=== PATIENT | male | born 1975 | race Caucasian/White ===

== ENCOUNTER 2017-01-18 12:42 | Emergency (ER) | payer MEDICAID ==
[~2017-01-18] VITALS: Ht 147.3 cm; Wt 96.0 kg
[~2017-01-18 12:42] MED LIST: LISI20TA11 PO
[2017-01-18 12:54] VITALS: Ht 147.3 cm; Wt 96.0 kg
[2017-01-18 19:58] LABS: BASOPHIL # 0.1 10^3/ul (0.0-0.1); BASOPHILS % 1.3 % (0.0-2.0); EOSINOPHILS # 0.8 10^3/ul (0.0-0.5); EOSINOPHILS % 9.6 % (0.0-7.0); HEMATOCRIT 45.2 % (42.0-52.0); HEMOGLOBIN 14.8 g/dl (14.0-18.0); LYMPHOCYTES # 3.4 10^3/ul (0.8-2.9); LYMPHOCYTES % 41.3 % (15.0-51.0); MEAN CORPUSCULAR HEMOGLOBIN 28.5 pg (29.0-33.0); MEAN CORPUSCULAR HGB CONC 32.7 g/dl (32.0-37.0); MEAN CORPUSCULAR VOLUME 87.1 fl (82.0-101.0); MEAN PLATELET VOLUME 11.2 fl (7.4-10.4); MONOCYTE # 0.6 10^3/ul (0.3-0.9); MONOCYTES % 6.8 % (0.0-11.0); NEUTROPHILS % 40.8 % (39.0-77.0); PLATELET COUNT 235 10^3/UL (140-415); RED BLOOD COUNT 5.19 10^6/ul (4.70-6.10); RED CELL DISTRIBUTION WIDTH 12.9 % (11.5-14.5); WHITE BLOOD COUNT 8.2 10^3/ul (4.8-10.8)
--- NOTE | 2017-01-18 20:05 | RADRPT ---
PROCEDURE: XR Chest AP portable CLINICAL INDICATION: Chest pain TECHNIQUE: An AP portable radiograph of the chest was submitted. COMPARISON: 01/11/2014 FINDINGS: Support Hardware: None Cardiovascular: The cardiovascular silhouette appears unremarkable. Lung Lee: The lung lee appear clear with no nodule, alveolar infiltrate, or interstitial promi nence evident. Pleural Spaces: No pneumothorax or pleural effusion is identified. Osseous Structures: The osseous structures appear intact. Soft Tissues: The soft tissues appear generous. IMPRESSION: Stable and unremarkable portable chest. Physician Carolyn Date Time Electronically viewed and signed by Génesis Goldman Physician on 01/18/2017 20:05 RH/
[2017-01-18 20:15] LABS: ANION GAP 16 (8-16); BLOOD UREA NITROGEN 13 mg/dl (7-20); CALCIUM 9.7 mg/dl (8.4-10.2); CARBON DIOXIDE 27 mmol/L (21-31); CHLORIDE 104 mmol/L (97-110); CREATININE 0.85 mg/dl (0.61-1.24); GLUCOSE 95 mg/dl (70-220); POTASSIUM 3.7 mmol/L (3.5-5.1); SODIUM 143 mmol/L (135-144)
[2017-01-18 20:37] LABS: TROPONIN-I < 0.012 ng/ml (0.00-0.12)
--- NOTE | 2017-01-18 22:35 | ERD ---
ER Documentation Chief Complaint Date/Time DATE: 01/18/17 TIME: 22:33 Chief Complaint SIDE AFFECTS OF NEW MEDICATION (LOSARTAN), DIZZINESS/LETHARGY/MID-EPG PAIN HPI This 41-year-old male presents emergency room for lightheadedness as well as mild chest pain after he started taking losartan. He last took it this morning and started feeling strange. He has not had any reactions to his other medications before. He denies shortness of breath, nausea vomiting. ROS All systems reviewed and are negative except as per history of present illness. Medications Home Meds Discontinued Reported Medications Lisinopril* (Lisinopril*) 20 Mg Tablet, 20 MG PO DAILY, TAB 01/11/14 Allergies Allergies: Coded Allergies: atenolol (Unverified Adverse Reaction, Unknown, 01/18/17) hydrochlorothiazide (Unverified Adverse Reaction, Unknown, 01/18/17) lisinopril (Unverified Adverse Reaction, Unknown, 01/18/17) losartan (Unverified Adverse Reaction, Unknown, 01/18/17) PMhx/Soc History of Surgery: Yes (L knee Sx) Anesthesia Reaction: No Hx Neurological Disorder: No Hx Respiratory Disorders: No Hx Cardiac Disorders: Yes (HTN) Hx Psychiatric Problems: No Hx Miscellaneous Medical Probl: No (HTN) Hx Alcohol Use: Yes (current ETOH use ) Hx Substance Use: No Hx Tobacco Use: No Smoking Status: Never smoker Physical Exam Vitals Vital Signs Date Time Temp Pulse Resp B/P Pulse Ox O2 Delivery O2 Flow Rate FiO2 01/18/17 18:45 97.7 59 19 142/97 97 Room Air 01/18/17 12:54 98.4 72 20 158/84 98 Physical Exam Const: [] No distress Head: Atraumatic Eyes: Normal Conjunctiva ENT: Normal External Ears, Nose and Mouth. Neck: Full range of motion..~ No meningismus. Resp: Clear to auscultation bilaterally Cardio: Mild sinus bradycardia, no murmurs Abd: Soft, non tender, non distended. Normal bowel sounds Skin: No petechiae or rashes Ext: No cyanosis, or edema Neur: Awake and alert Psych: Normal Mood and Affect Result Diagram: 01/18/17194401/18/171944 Results 24 hrs Laboratory Tests Test 9/8/17 19:45 White Blood Count 8.210^3/ul Red Blood Count 5.1910^6/ul Hemoglobin 14.8g/dl Hematocrit 45.2% Mean Corpuscular Volume 87.1fl Mean Corpuscular Hemoglobin 28.5pg Mean Corpuscular Hemoglobin Concent 32.7g/dl Red Cell Distribution Width 12.9% Platelet Count 00707^3/UL Mean Platelet Volume 11.2fl Neutrophils % 40.8% Lymphocytes % 41.3% Monocytes % 6.8% Eosinophils % 9.6% Basophils % 1.3% Nucleated Red Blood Cells % 0.0/100WBC Neutrophils # (Manual) 3.310^3/ul Lymphocytes # 3.410^3/ul Monocytes # 0.610^3/ul Eosinophils # 0.810^3/ul Basophils # 0.110^3/ul Nucleated Red Blood Cells # 0.010^3/ul Sodium Level 143mmol/L Potassium Level 3.7mmol/L Chloride Level 104mmol/L Carbon Dioxide Level 27mmol/L Anion Gap 16 Blood Urea Nitrogen 13mg/dl Creatinine 0.85mg/dl Glucose Level 95mg/dl Calcium Level 9.7mg/dl Troponin I < 0.012ng/ml Procedures/MDM Mild chest pain with no signs of acute cardiac ischemia. Patient believes that his symptoms are caused by taking losartan. I instructed him not to take losartan anymore and follow-up with his primary care doctor within the next few daysAnd instructions for an outpatient echocardiogram.. He says that he can call his doctor on Saturday and probably get an appointment. Was given aspirin. No signs of any acute infection or electrolyte abnormality. EKG interpretation: Normal sinus rhythm rate of 60, indeterminate axis., no ST or T-wave changes concerning for acute ischemia, normal intervals. monitor technician interpretation: Normal sinus rhythm without arrhythmia Chest x-ray interpretation: I see no acute process, no vitamin Johansen, no pulmonary, pneumothorax, no fractures. Departure Diagnosis: Primary Impression: Chest pain Additional Impression: Lightheaded Condition: Stable Patient Instructions: Chest Pain, Uncertain Cause Additional Instructions: Llame al doctor MAANA y lary mike STONEY PARA DENTRO DE 2-3 WATKINS.Dgale a la secretaria que nosotros le instruimos hacer esta stoney.Avise o llame si ruff condicin se empeora antes de la stoney. Regresa aqui si peor o no mejor. FIONA MARTINEZ DO Jan 18, 2017 22:35
[2017-01-18 23:00] VITALS: BP 131/82; PULSE 48; RESP 22; TEMP 97.7
== END 2017-01-18 23:05 | disposition home or self-care (01) ==
LOC: E/R 12:42
DX: R07.9 Chest pain, unspecified (principal); I10 Essential (primary) hypertension
CPT/HCPCS: 71010; 80048; 84484; 85025; 93005; Z7502